=== PATIENT | female | born 1980 | race Caucasian/White ===

== ENCOUNTER 2018-06-25 16:03 | Outpatient (REF) | payer BC, SELFPAY ==
--- NOTE | 2018-06-25 15:40 | PAPFT_PTH ---
PATIENT: Meg Wilson LOC: [facility] U#:[id number] AGE/SX: 38/F ROOM: RE06/25/[address]: JOSE Aldridge : 1980 BED: DIS: 06/25/2018 SPEC #: [id number] RECD: 06/25/18 17:16 STATUS: SONIA RETran #: [id number] YEHUDA: 06/25/18 15:[address]: Brandy Dwyer DEPT: [facility] Cytology RECD BY: Daphne Dave ENTERED: 06/25/18 17:16 SP TYPE: PAPFT OTHR DR: Batsheva Quinonez Tissues: 1 - CX/ENDOCX FOR PAP SMEARS Procedures: PAP THIN PREP/[facility] Screening HPV DNA PROBE Comments: [id number]
== END 2018-06-25 16:23 ==
LOC: LBN 16:03
PROVIDERS: Visit Provider Nurse Practitioner Family
DX: Z12.4 Encounter for screening for malignant neoplasm of cervix (principal); Z11.51 Encounter for screening for human papillomavirus (HPV)
CPT/HCPCS: 88142; 87624

== ENCOUNTER 2019-06-11 17:55 | Emergency (ER) | payer BC, SELFPAY ==
[2019-06-11 17:59] VITALS: BP 152/92; PULSE 100; RESP 18; TEMP 36.6; O2SAT 99
--- NOTE | 2019-06-11 18:31 | ED.GENADUL_ITS ---
Discharge Plan Disposition Patient Disposition: HOME Condition: Stable Discharge Details Chief Complaint: Orthopedic Clinical Impression: Muscle strain of lower leg Primary Care Provider: Viktoria Santos ED Provider: Nadia Núñez Home Meds and New Rx's Prescriptions: New lidocaine [Lidoderm] 5 % adhesive patch,medicated 1 patch TP DAILY Qty: 15 RF: 0 Continued norgestimate-ethinyl estradiol [Sprintec (28)] 0.25-35 mg-mcg tablet 1 tab PO DAILY Qty: 84 RF: 3 multivitamin [Daily Multi-Vitamin] 1 EACH tablet 1 ea PO DAILY RF: 0 Discharge Instructions Instructions: Muscle Strain (ED) Additional Instructions: Alternate Tylenol and Motrin as needed and directed for pain. Apply the topical pain patch to the area as needed and directed. Alternate ice and heat to the affected area several times daily for 20 minutes at a time. Follow-up with the primary doctor this week for reevaluation. Return immediately to the emergency department with any worsening or new concerning symptoms. Discharge Data Discharge Date/Time-TO BE ENTERED AT DEPARTURE: 06/11/19 19:07 Discharge Physician: Nadia Núñez Medical Decision Making 39-year-old female presents with complaint of feeling a snap with sudden onset of left posterior calf pain today while walking uphill today. Denies fever or rash. She has tenderness to palpation of her left posterior leg near insertion of the calf and mid leg but there is no evidence of trauma, rash or cellulitis. She is neurovascular intact. Negative Collazo test. Normal knee/hip/ankle and foot exam. Appears consistent likely with muscle strain. Exam/presentation not consistent with DVT or cellulitis. She declines dose of ibuprofen here. A Lidoderm patch was placed. Patient was given a Lidoderm patch prescription. She is advised to alternate ice and heat, Tylenol and Motrin and gentle stretching exercises. An Jamey wrap was placed. She was advised to follow-up with her primary care doctor for reevaluation and to return here anytime if worse. Medical Records Medical records reviewed: Yes I reviewed the patient's medical records. HPI General Mode of arrival: ambulatory . Date/Time Provider Initiated Documentation: 06/11/19 18:02 . Limitations to Documentation: no limitations . Information obtained by: patient . HPI Narrative: Patient is a 39-year-old female presents with left posterior leg pain after she felt and heard a snap in her left calf muscle as she was walking up a hill today. Patient states she had a similar episode occurred within the past week but states today's episode appeared more intense. She states she has difficulty ambulating on her left foot due to the pain. She has not taken anything for pain. She denies any fever, recent travel, recent surgery, hip, knee, ankle or foot pain. Related Data Home Medications Medication Instructions Recorded Confirmed multivitamin [Daily Multi-Vitamin] 1 ea PO DAILY 11/04/13 06/11/19 norgestimate 0.25 mg-ethinyl 1 tab PO DAILY #84 tab 06/25/18 06/11/19 estradiol 35 mcg tablet lidocaine [Lidoderm] 1 patch TP DAILY #15 each 06/11/19 Previous Rx's Medication Instructions Recorded norgestimate 0.25 mg-ethinyl 1 tab PO DAILY #84 tab 06/25/18 estradiol 35 mcg tablet lidocaine [Lidoderm] 1 patch TP DAILY #15 each 06/11/19 Allergies Allergy/AdvReac Type Severity Reaction Status Date / Time No Known Drug Allergies Allergy Unverified 06/11/19 18:06 General Stated Complaint: Orthopedic PRABHA: 4 Review of Systems Review of Systems ROS Unobtainable: All systems reviewed & are unremarkable except as noted in HPI and below Constitutional Constitutional: Reports as per HPI, Denies chills and Denies fever(s) Eyes Eyes: Denies blurry vision ENT Ears, Nose, Mouth, and Throat: Denies dizziness, Denies sore throat and Denies throat swelling Cardiovascular Cardiovascular: Denies chest pain and Denies dyspnea Respiratory Respiratory: Denies cough and Denies dyspnea Gastrointestinal Gastrointestinal: Denies abdominal pain, Denies diarrhea and Denies vomiting Genitourinary Genitourinary: Denies hematuria and Denies dysuria Musculoskeletal Musculoskeletal: Denies back pain, Denies numbness and Reports other (Left calf pain.) Integumentary/Breasts Skin/Breast: Denies lesions and Denies rash Neurologic Neurologic: Denies dizziness, Denies focal weakness and Denies numbness Allergic/Immunologic Allergic/Immunologic: Denies throat swelling [facility] Medical History No significant past medical history (Acute) Surgical History (Updated 07/14/18 @ 14:34 by [facility]) 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) laparoscopic [facility] Date not exact as last ov note didn't specify Tonsillectomy and adenoidectomy as a child Social History Smoking/Tobacco Use Status: Never Alcohol Intake: former Substance use type: does not use Do you feel safe at home: Yes Do you feel safe in your relationship?: Yes Female Reproductive History Menstrual control method: pills History History 2 Para Hx # Term Pregnancies 2 Multiple births Hx # Pregnancies Ectopic pregnancies AB induced Hx Number of Living Children AB spontaneous Exam Const General: cooperative, healthy appearing and no acute distress HENMT Head: normal to inspection Face and sinus: normal facial exam Eyes General: appearance normal, both eyes and all related structures EOM: EOM intact bilaterally Neck Neck: normal visual inspection and No submandibular swelling Lymphatic: no lymphadenopathy noted Chest Chest: normal inspection of the chest and no tenderness Resp Effort & Inspection: normal respiratory effort and able to speak in complete sentences Cardio Rate: regular rate Skin General skin exam: no rashes or lesions noted Neuro General: alert, awake and oriented x3 Cognition: normal cognition Speech: speech normal Motor: muscle tone normal throughout Sensory Exam: no sensory deficits noted Extrem Other: Tenderness to palpation L posterior inferior calf. There is no edema, ecchymosis, erythema, lesions or rash. Bilateral posterior legs appear symmetric. Negative Collazo test L leg. Normal left knee/hip/ankle/foot exam without pain with range of motion or tenderness. Left DP/PT pulses intact. Psych Appearance: grossly normal Mental Status: mental status grossly normal Speech and Movement: speech and movement normal Affect: normal affect Course Vital Signs Vital signs: Vital Signs Temperature 97.9 F 06/11/19 17:59 Pulse 100 H 06/11/19 17:59 Respiratory Rate 18 06/11/19 17:59 Blood Pressure 152/92 H 06/11/19 17:59 Pulse Oximetry 99 06/11/19 17:59 Temperature 97.9 F 06/11/19 17:59 Temperature Source Skin 06/11/19 17:59 Pulse 100 H 06/11/19 17:59 Respiratory Rate 18 06/11/19 17:59 Respiratory Effort Non-Labored 06/11/19 18:02 Blood Pressure 152/92 H 06/11/19 17:59 Blood Pressure Position Sitting 06/11/19 17:59 Pulse Oximetry 99 06/11/19 17:59 Oxygen Delivery Method Room Air 06/11/19 17:59 Oxygen Flow Rate 0 06/11/19 17:59 Pain Level 8 06/11/19 17:59
[2019-06-11] MEDS: Lidocaine 5% Patch 1 PATCH (19:00)
== END 2019-06-11 19:07 | disposition home or self-care (01) ==
PROVIDERS: Emergency Provider Physician Assistant; PCP Family Medicine
DX: S86.912A Strain of unspecified muscle(s) and tendon(s) at lower leg level, left leg, initial encounter (principal); X58.XXXA Exposure to other specified factors, initial encounter
CPT/HCPCS: 99283; E0114

== ENCOUNTER 2019-11-15 17:13 | Emergency (ER) | payer BC, SELFPAY ==
[2019-11-15 17:16] VITALS: BP 121/100; PULSE 90; RESP 16; TEMP 36.8; O2SAT 98
--- NOTE | 2019-11-15 18:09 | ED.GENADUL_ITS ---
Discharge Plan Disposition Patient Disposition: HOME Condition: Stable Discharge Details Chief Complaint: RespSymp Clinical Impression: URI (upper respiratory infection) Primary Care Provider: Viktoria Santos ED Provider: Kashmir Hicks Home Meds and New Rx's Prescriptions: Continued norgestimate-ethinyl estradiol [Sprintec (28)] 0.25-35 mg-mcg tablet 1 tab PO DAILY Qty: 84 RF: 3 multivitamin [Daily Multi-Vitamin] 1 EACH tablet 1 ea PO DAILY RF: 0 Discharge Instructions Instructions: Upper Respiratory Infection (ED) Additional Instructions: Please drink plenty of fluid to stay hydrated and allow for plenty of rest. Please contact your primary care physician to arrange follow-up. Return to the ER for any worsening or new concerning symptoms. Referrals: Viktoria Santos [Primary Care Provider] - Discharge Data Discharge Date/Time-TO BE ENTERED AT DEPARTURE: 11/15/19 19:00 Medical Decision Making 39-year-old female here with respiratory illness over the past 2 weeks. No signs of focal bacterial infection on exam. Suspect viral illness. Consider influenza. Rapid flu testing negative. Supportive care was recommended. Patient was encouraged to follow-up with her primary care physician and to return should she have any worsening or new conc erning symptoms. HPI General Mode of arrival: ambulatory . Date/Time Provider Initiated Documentation: 11/15/19 17:18 . Limitations to Documentation: no limitations . Information obtained by: patient . HPI Narrative: 39-year-old female presents with chief complaint of respiratory illness. Patient notes she initially had sore throat, cough and low-grade fever about 2 weeks ago. Symptoms seem to improve and then over the past few days have returned. She had severe sinus congestion that is now improved. She continues to have ear popping. She is here tonight with her daughter who has respiratory illness and wanted to be evaluated given she has been ill for approximately 2 weeks. She continues to have cough that is intermittently productive. Symptoms are now mild to moderate. No modifiers. She has been using ibuprofen and guaifenesin which did seem to help with some of her cough at night. She works as a teacher. No recent travel. Related Data Home Medications Medication Instructions Recorded Confirmed multivitamin [Daily Multi-Vitamin] 1 ea PO DAILY 11/04/13 11/15/19 norgestimate 0.25 mg-ethinyl 1 tab PO DAILY #84 tab 10/28/19 02/18/20 estradiol 35 mcg tablet Previous Rx's Medication Instructions Recorded norgestimate 0.25 mg-ethinyl 1 tab PO DAILY #84 tab 07/25/19 estradiol 35 mcg tablet Allergies Allergy/AdvReac Type Severity Reaction Status Date / Time No Known Drug Allergies Allergy Unverified 11/15/19 17:18 General Stated Complaint: RespSymp PRABHA: 3 Review of Systems All systems reviewed & are unremarkable except as noted in HPI and below Constitutional Constitutional: Reports as per HPI Respiratory Respiratory: Reports cough Gastrointestinal Gastrointestinal: Denies vomiting [facility] Medical History No significant past medical history (Acute) Surgical History 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) laparoscopic at [facility] Date not exact as last ov note didn't specify Tonsillectomy and adenoidectomy as a child Family History Father Well adult Mother Well adult Social History Smoking/Tobacco Use Status: Never Alcohol Intake: former Substance use type: does not use current occupation: Teacher in [place] Do you feel safe at home: Yes Do you feel safe in your relationship?: Yes Female Reproductive History Menstrual control method: pills History History 2 Para Hx # Term Pregnancies 2 Multiple births Hx # Pregnancies Ectopic pregnancies AB induced Hx Number of Living Children AB spontaneous Exam Const General: cooperative and no acute distress HENMT Ears: TM normal on the left, EAC's normal, mastoids normal, no periauricular adenopathy and TM abnormal (Fall on right) not with effusion and not erythematous General nose exam: external nose normal Mouth: moist mucous membranes Throat: tonsils normal, uvula midline, no peritonsillar masses and postnasal drainage Eyes Conjunctivae: normal conjunctivae Sclera: normal sclerae Neck Neck: no lymphadenopathy, trachea midline and supple Resp Effort & Inspection: normal respiratory effort, cough, not labored and no stridor Auscultation: clear to auscultation bilaterally, no rales, no rhonchi and no wheezes Cardio Jugular venous pressure: no JVD Rate: regular rate and not tachycardic Rhythm: regular rhythm GI Palpation: soft, not firm, no guarding, no masses, not rigid and nontender Skin General skin exam: no rashes or lesions noted Neuro General: alert, awake and tone normal Extrem General: no edema Psych Appearance: grossly normal Mental Status: mental status grossly normal Course Vital Signs Vital signs: Vital Signs Temperature 36.8 C 11/15/19 17:16 Pulse 90 11/15/19 17:16 Respiratory Rate 16 11/15/19 17:16 Blood Pressure 121/100 H 11/15/19 17:16 Pulse Oximetry 98 11/15/19 17:16 Temperature 36.8 C 11/15/19 17:16 Temperature Source Temporal Artery Scan 11/15/19 17:16 Pulse 90 11/15/19 17:16 Respiratory Rate 16 11/15/19 17:16 Respiratory Effort Non-Labored 11/15/19 17:21 Respiratory Depth Normal 11/15/19 17:21 Blood Pressure 121/100 H 11/15/19 17:16 Pulse Oximetry 98 11/15/19 17:16 Oxygen Delivery Method Room Air 11/15/19 17:16 Oxygen Flow Rate 0 11/15/19 17:16 Pain Level 5 11/15/19 17:16 Lab/Test Results Lab/Test Results: 11/15/19 17:30 Nasopharynx Influenza Types A,B Antigen - Final
== END 2019-11-15 19:00 | disposition home or self-care (01) ==
PROVIDERS: Emergency Provider Student in an Organized Health Care Education/Training Program; PCP Family Medicine
DX: J06.9 Acute upper respiratory infection, unspecified (principal)
CPT/HCPCS: 87449; 99281

== ENCOUNTER 2019-11-18 16:48 | Emergency (ER) | payer BC, SELFPAY ==
[2019-11-18 16:52] VITALS: BP 158/93; PULSE 91; RESP 18; TEMP 36.5; O2SAT 100
--- NOTE | 2019-11-18 17:15 | W.ED.GENAD ---
Discharge Plan Disposition Patient Disposition: HOME Condition: Stable Discharge Details Chief Complaint: GenMedical Clinical Impression: Sinusitis Primary Care Provider: Viktoria Santos ED Provider: Ольга Cruz Home Meds and New Rx's Prescriptions: New amoxicillin-pot clavulanate [Augmentin] 875-125 mg tablet 1 tab PO BID 7 Days Qty: 14 RF: 0 Continued norgestimate-ethinyl estradiol [Sprintec (28)] 0.25-35 mg-mcg tablet 1 tab PO DAILY Qty: 84 RF: 3 multivitamin [Daily Multi-Vitamin] 1 EACH tablet 1 ea PO DAILY RF: 0 Discharge Instructions Instructions: Sinusitis (ED) Additional Instructions: Try Flonase nasal spray 1 spray a day x3 to 5 days. Follow up with primary care provider in 3-5 days. Return to ED sooner if any worsening or concerns. Increase oral fluids. Please take Tylenol or Ibuprofen with food every 4-6 hours as needed for pain and swelling. Take medications as directed. Referrals: Viktoria Santos [Primary Care Provider] - Discharge Data Discharge Date/Time-TO BE ENTERED AT DEPARTURE: 11/18/19 17:25 Medical Decision Making 39-year-old female presents with left-sided sinus tenderness x2-1/2 weeks. She reports being seen here on Thursday for similar symptoms, upper respiratory symptoms including cough ear pressure sinus pressure and headache. She reports that symptoms are now gotten somewhat worse. And now have kind of settled into her left maxillary sinus and left jaw. Denies any chest pain or shortness of breath. No lymphadenopathy. Due to length of illness will place patient on Augmentin twice daily x7 days and instructed to use Flonase [id number] or similar. Verbalized understanding. HPI General Mode of arrival: ambulatory. Date/Time Provider Initiated Documentation: 11/18/19 16:48. Limitations to Documentation: no limitations. Information obtained by: patient. HPI Narrative: 39-year-old female presents with left-sided sinus tenderness. She reports being seen here on Thursday for similar symptoms, upper respiratory symptoms including cough ear pressure sinus pressure and headache. She reports that symptoms are now gotten somewhat worse. And now have kind of settled into her left maxillary sinus and left jaw. Denies any chest pain or shortness of breath. No lymphadenopathy. Related Data Home Medications Medication Instructions Recorded Confirmed multivitamin [Daily Multi-Vitamin] 1 ea PO DAILY 11/04/13 11/18/19 norgestimate 0.25 mg-ethinyl 1 tab PO DAILY #84 tab 07/25/19 11/18/19 estradiol 35 mcg tablet amoxicillin-pot clavulanate 1 tab PO BID 7 Days #14 tab 11/18/19 [Augmentin] Previous Rx's Medication Instructions Recorded norgestimate 0.25 mg-ethinyl 1 tab PO DAILY #84 tab 07/25/19 estradiol 35 mcg tablet amoxicillin-pot clavulanate 1 tab PO BID 7 Days #14 tab 11/18/19 [Augmentin] Allergies Allergy/AdvReac Type Severity Reaction Status Date / Time No Known Drug Allergies Allergy Unverified 11/18/19 16:56 General Stated Complaint: GenMedical PRABHA: 3 Review of Systems Narrative: Constitutional: Negative for weight loss, alert and oriented, well groomed, normal body habitus, appears comfortable. HEENT: Denies trauma, headaches, blurry vision, sore throat, trouble swallowing. Positive nasal discharge. Positive sinus tenderness Chest: Denies chest pain, palpitations, irregular rhythm, hypertension. Respiratory: Denies Shortness of breath, hemoptysis. Positive cough GI: Denies abdominal pain, nausea, vomiting, diarrhea, constipation. : Denies dysuria, hematuria, flank pain, rectal bleeding. Neuro: Denies dizziness, blurry vision, weakness, syncope, headache or facial numbness. Hematologic: Denies easy bruising, intolerance to heat or cold, hair loss. 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 Appears stated age. Normal body habitus. Head: Normocephalic, no trauma. Eyes: Pupils PERRLA, Red reflex noted, EOM's intact. Eyelids symmetrical withour lesions, discharge, or swelling. ENT: Bilateral TM's WNL, External ear normal to inspection, no mastoid TTP, swelling, or erythema, Nasal turbinates WNL, no nasal discharge. Normal dentition, Posterior pharynx WNL, no exudate. positive left-sided maxillary sinus tenderness with palpation. No dental caries or dental abscess noted. Is handling secretions well Chest: RRR, Normal S1, S2, distal pulses intact. Resp: Lungs clear to auscultation bilaterally, no wheezes, rales, or rhonchi. Musculoskeletal: Normal gait, 5/5 strength to all four extremities. Skin: No suspicious rashes or lesions. Capillary refill ?2 sec. Neurologic: Cranial nerves II-XII intact. Alert and oriented x 3. DTR's intact. Hematologic/Lymphatic: No ecchymosis, no lymphadenopathy. Course Vital Signs Vital signs: Vital Signs Temperature 36.5 C 11/18/19 16:52 Pulse 91 H 11/18/19 16:52 Respiratory Rate 18 11/18/19 16:52 Blood Pressure 158/93 H 11/18/19 16:52 Pulse Oximetry 100 11/18/19 16:52 Temperature 36.5 C 11/18/19 16:52 Temperature Source Temporal Artery Scan 11/18/19 16:52 Pulse 91 H 11/18/19 16:52 Respiratory Rate 18 11/18/19 16:52 Respiratory Effort 11/18/19 17:05 Respiratory Depth Normal 11/18/19 17:05 Respiratory Pattern Normal 11/18/19 17:05 Blood Pressure 158/93 H 11/18/19 16:52 Blood Pressure Position Sitting 11/18/19 16:52 Pulse Oximetry 100 11/18/19 16:52 Oxygen Delivery Method Room Air 11/18/19 16:52 Oxygen Flow Rate 0 11/18/19 16:52 Pain Level 8 11/18/19 16:52
[2019-11-18] MEDS: Amoxicillin 875/Clav. 125 TAB PO (17:24)
== END 2019-11-18 17:25 | disposition home or self-care (01) ==
PROVIDERS: Emergency Provider Registered Nurse Emergency; PCP Family Medicine
DX: J01.90 Acute sinusitis, unspecified (principal)
CPT/HCPCS: 99283

== ENCOUNTER 2020-11-26 11:28 | Outpatient (REF) | payer BC, SELFPAY ==
--- NOTE | 2020-11-26 10:40 | PAPFT_PTH ---
PATIENT: Meg Wilson LOC: [facility] U#:[id number] AGE/SX: 40/F ROOM: RE11/26/[address]: JOSE Aldridge : 1980 BED: DIS: 11/26/2020 SPEC #: [id number] RECD: 11/26/20 13:02 STATUS: SONIA BECKETT #: [id number] YEHUDA: 11/26/20 10:[address]: Brandy Dwyer DEPT: [facility] Cytology RECD BY: Daphne Dave ENTERED: 11/26/20 13:03 SP TYPE: PAPFT OTHR DR: Viktoria Santos Tissues: 1 - CX/ENDOCX FOR PAP SMEARS Procedures: PAP THIN PREP/[facility] Screening HPV DNA PROBE Comments: [id number]
== END 2020-11-26 11:29 | disposition home or self-care (01) ==
LOC: LBN 11:28
PROVIDERS: PCP Family Medicine; Visit Provider Nurse Practitioner Family
DX: Z12.4 Encounter for screening for malignant neoplasm of cervix (principal); Z11.51 Encounter for screening for human papillomavirus (HPV)
CPT/HCPCS: 88142; 87624

== ENCOUNTER 2021-01-18 03:47 | Outpatient (CLI) | payer BC, SELFPAY ==
--- NOTE | 2021-01-18 10:45 | DI.MAMMO_ITS ---
EXAM: MAMMO SCREENING CLINICAL HISTORY: screening TECHNIQUE: Mammograms were interpreted according to the usual protocol including computer analysis w [employer] CAD system, tomosynthesis and C-view imaging. COMPARISON: No exams were available for comparison. Baseline examination. FINDINGS: The breasts are composed of scattered fibroglandular densities, Breast Density category B. No suspicious masses or suspicious microcalcifications are seen. No skin thickening or abnormal axillary lymph nodes are seen. IMPRESSION: BI-RADS Category 1, Negative mammogram Yearly screening mammography is recommended. Breast Density - Category B, scattered fibroglandular densities. A negative radiographic report should not delay biopsy if a dominant or clinically suspicious mass is present. Up to ten percent of cancers are not identified on mammography. A negative report may reinforce clinical impression. Adenosis and dense breasts may obscure an underlying neoplasm. False positive reports average 6 to 10%. Patient will receive a letter notifying them of these results.
== END 2021-01-18 04:07 ==
PROVIDERS: PCP Family Medicine; Visit Provider Nurse Practitioner Family
DX: Z12.31 Encounter for screening mammogram for malignant neoplasm of breast (principal)
CPT/HCPCS: 77063; 77067

== ENCOUNTER → 2022-04-07 02:19 | Outpatient (CLI) | payer BC, SELFPAY ==
--- NOTE | 2022-04-07 16:30 | DI.MAMMO_ITS ---
Exam(s) MAMMO SCREENING EXAM: MAMMO SCREENING CLINICAL HISTORY: screening. TECHNIQUE: Bilateral full field digital CC and MLO mammographic images were obtained with 3D tomosyn thesis and utilizing computer aided detection (CAD). COMPARISON: Prior baseline mammogram of December 2020 FINDINGS: In the breast there is an asymmetric density-possible nodule located 9 cm in from the nipple on the 3 D cc view and measuring approximately 1 by 0.6 cm.. Requires additional imaging. There are no malig nant-appearing microcalcification groups in this region or elsewhere in right breast. Small benign-a ppearing nodule also noted medially in the right breast measuring 5 x 5 millimeters located medial to the nipple, 10 cm in from the nipple. In the opposite-left breast there is an asymmetric density possible nodule located laterally, approxi mately 11 cm in the nipple measuring approximately 9 x 7. There is no significant architectural distortion nor skin thickening-retraction. IMPRESSION: Bilateral asymmetric densities/possible nodules. Spot compression views of both breasts and bilatera l complete breast ultrasound recommended. BI-RADS Category 0 - Assessment Incomplete: Need additional imaging evaluation Breast Density - Category B - Scattered areas of fibroglandular density Breast density Category C or D implies that the patient has dense breast tissue. Dense breast tissue can make it harder to find cancer on a mammogram. Dense breast tissue is also associated with an incr eased risk of breast cancer. This information about the result of the mammogram report was provided to the patient to raise their awareness. Use this report when you speak with the patient about their risks for breast cancer, which includes their family history. At that time, you may recommend additional screening tests (Ultrasoun d or MRI) as these tests may add significant information. A negative radiographic report should not delay biopsy if a dominant or clinically suspicious mass is present. Up to ten percent of cancers are not identified on mammography. A negative report may reinforce clinical impression. Adenosis and dense breasts may obscure an underlying neoplasm. False positive reports average 6 to 10%. Patient will receive a letter notifying them of these results.
== END ==
PROVIDERS: PCP Family Medicine; Visit Provider Nurse Practitioner Family
DX: Z12.31 Encounter for screening mammogram for malignant neoplasm of breast (principal); R92.8 Other abnormal and inconclusive findings on diagnostic imaging of breast
CPT/HCPCS: 77063; 77067

== ENCOUNTER → 2022-04-11 00:58 | Outpatient (CLI) | payer BC, SELFPAY ==
--- NOTE | 2022-04-11 | DI.US_ITS ---
Exam(s) US BREAST RT LIMITED US BREAST LT LIMITED MG MAMMO SCREEN CALL BACK BI EXAM: MG MAMMO SCREEN CALL BACK BI and and bilateral limited breast U/S CLINICAL HISTORY: ASYMMETRIC DENSITY BILAT BREAST. TECHNIQUE: Craniocaudal and mediolateral oblique Full Field Digital Mammography views of the bilater al breast with Computer Aided Diagnosis followed by Tomosynthesis and bilat breast ultrasound. COMPARISON: Comparison made with prior examinations. FINDINGS: Mammography/Tomosynthesis: Masses/Architectural Distortion: The areas in the outer left breast were evaluated with spot compress ion views. Additional views fail to show persistent discrete mass. Microcalcifictions: No suspicious pleomorphic-type are seen. Skin Thickening/Nipple Retraction: None. Limited bilateral breast US: Echotexture: Normal appearance of the glandular tissue. Shadowing: No suspicious foci. Cyst: There is a 3 x 4 x 4 mm cyst at the 12 o'clock position of the left breast 3 cm from the nipple . There are 2 small cysts at the 11 o'clock position of the right breast 4 cm from the nipple. They measure 2 x 2 x 3 mm and 3 x 1 x 4 mm. Solid lesions: None seen. Ductal dilation: None. IMPRESSION: 1. No evidence of malignancy is noted. 2. A six-month follow-up bilateral mammogram is recommended for re-evaluation. 3. The findings were discussed with the patient on the date of the examination. BI-RADS Category 3 - 6 month - Probably Benign Finding: Recommend follow-up imaging in 6 months Breast Density - Category B - Scattered areas of fibroglandular density Breast density Category C or D implies that the patient has dense breast tissue. Dense breast tissue can make it harder to find cancer on a mammogram. Dense breast tissue is also associated with an incr eased risk of breast cancer. This information about the result of the mammogram report was provided to the patient to raise their awareness. Use this report when you speak with the patient about their risks for breast cancer, which includes their family history. At that time, you may recommend additional screening tests (Ultrasoun d or MRI) as these tests may add significant information. A negative radiographic report should not delay biopsy if a dominant or clinically suspicious mass is present. Up to ten percent of cancers are not identified on mammography. A negative report may reinforce clinical impression. Adenosis and dense breasts may obscure an underlying neoplasm. False positive reports average 6 to 10%. Patient will receive a letter notifying them of these results.
== END ==
PROVIDERS: PCP Family Medicine; Visit Provider Nurse Practitioner Family
DX: Z12.31 Encounter for screening mammogram for malignant neoplasm of breast (principal); R92.8 Other abnormal and inconclusive findings on diagnostic imaging of breast; N60.02 Solitary cyst of left breast; N60.11 Diffuse cystic mastopathy of right breast
CPT/HCPCS: 76642; 77063; 77067

== ENCOUNTER 2022-06-20 17:04 | Outpatient (REF) | payer BC, SELFPAY ==
[2022-06-20 18:40] LABS: HCT 38.5 % (36.0-46.0); HGB 13.1 g/dL (11.2-15.7); MCH 30.6 pg (27.0-33.0); MCV 90 fL (80-95); MPV 10.2 fL (8.0-11.0); Platelet Count 356 10^3/uL (130-400); RBC 4.28 10^6/uL (3.93-5.22); RDW 11.4 % (11.7-14.6); RDW-SD 37.5 fL; WBC 12.46 10^3/uL (4.4-10.8)
[2022-06-20 19:04] LABS: ALT 16 U/L (14-59); AST 9 U/L (15-37); Albumin 3.7 g/dL (3.4-5.0); Alkaline Phosphatase 73 U/L (46-116); Anion Gap 8.1 mmol/L (3-11); BUN 13 mg/dL (7-18); Bilirubin, Total 0.2 mg/dL (0.2-1.0); CO2 27.9 mmol/L (21.0-32.0); CREATININE 0.7 mg/dL (0.55-1.02); Calcium 8.8 mg/dL (8.5-10.1); Calculated LDL 78 mg/dL (<100); Chloride 103 mmol/L (98-107); Cholesterol 157 mg/dL (<200); Estimated GFR 110.67 (mL/min/1.73m2); Glucose 70 mg/dL (74-106); HDL Cholesterol 64 mg/dL (40-60); Potassium 4.1 mmol/L (3.5-5.1); Sodium 139 mmol/L (136-145); Total Protein 7.5 g/dL (6.4-8.2); Triglyceride 76 mg/dL (<150)
== END 2022-06-20 17:05 | disposition home or self-care (01) ==
LOC: NCHCN 17:04
PROVIDERS: PCP Family Medicine; Visit Provider Nurse Practitioner Family
DX: Z00.00 Encounter for general adult medical examination without abnormal findings (principal); Z13.220 Encounter for screening for lipoid disorders; Z13.228 Encounter for screening for other metabolic disorders
CPT/HCPCS: 80053; 80061; 85027

== ENCOUNTER 2022-10-14 02:25 | Outpatient (CLI) | payer BC, SELFPAY ==
--- NOTE | 2022-10-14 07:46 | DI.US_ITS ---
Exam(s) US BREAST LT COMPLETE US BREAST RT COMPLETE MG MAMMO DIAGNOSTIC BI EXAM: MG MAMMO DIAGNOSTIC BI AND BILATERAL COMPLETE BREAST ULTRASOUND CLINICAL HISTORY: 6 mo f/u,R92.8. TECHNIQUE: Unilateral spot mammographic images were obtained with 3D tomosynthesis technique and uti lizing computer aided detection (CAD). COMPARISON: Prior mammograms were reviewed, the most recent being MARCH 2022. FINDINGS: DIAGNOSTIC BILATERAL MAMMOGRAM: There has been no significant change in the appearance and distribution of the fibroglandular tissue. No new spiculated masses. Asymmetric densities bilaterally appear unchanged. There are no new malig nant-appearing microcalcification groups in either breast. There is no new architectural distortion nor skin thickening-retraction. BILATERAL COMPLETE BREAST ULTRASOUND: Right breast ultrasound: There is a 3 x 2 millimeter benign microcyst at the 10 o'clock position note d. No other focal ultrasound findings in all 4 quadrants. No solid lesions. Scanning of the right axilla is negative for adenopathy. Left breast ultrasound: No evidence of solid or significant cystic lesions in all 4 quadrants. Scanning of the left axilla is negative for adenopathy. IMPRESSION: 1. Stable benign-appearing mammographic findings. 2. Benign-appearing ultrasound finding in the right breast and no significant focal ultrasound findin gs in left breast. \ Appropriate follow-up is to keep this patient on a yearly mammogram schedule with earlier imaging if a self detected breast changes noted.. The patient was informed of the findings and follow-up recommendations by myself prior to leaving the department today. BI-RADS Category 2 - Benign Findings Breast Density - Category B - Scattered areas of fibroglandular density Breast density Category C or D implies that the patient has dense breast tissue. Dense breast tissue can make it harder to find cancer on a mammogram. Dense breast tissue is also associated with an incr eased risk of breast cancer. This information about the result of the mammogram report was provided to the patient to raise their awareness. Use this report when you speak with the patient about their risks for breast cancer, which includes their family history. At that time, you may recommend additional screening tests (Ultrasoun d or MRI) as these tests may add significant information. A negative radiographic report should not delay biopsy if a dominant or clinically suspicious mass is present. Up to ten percent of cancers are not identified on mammography. A negative report may reinforce clinical impression. Adenosis and dense breasts may obscure an underlying neoplasm. False positive reports average 6 to 10%. Patient will receive a letter notifying them of these results.
== END 2022-10-14 02:45 ==
LOC: DI 02:26
PROVIDERS: PCP Family Medicine; Visit Provider Nurse Practitioner Family
DX: R92.8 Other abnormal and inconclusive findings on diagnostic imaging of breast (principal)
CPT/HCPCS: 76642; 77062; 77066; G0279

== ENCOUNTER → 2023-10-19 03:25 | Outpatient (CLI) | payer BC, SELFPAY ==
--- NOTE | 2023-10-19 15:00 | DI.MAMMO_ITS ---
Exam(s) MAMMO SCREENING EXAM: MAMMO SCREENING CLINICAL HISTORY: screening TECHNIQUE: Mammograms were interpreted according to the usual protocol including computer analysis w [employer] CAD system, tomosynthesis and C-view imaging. COMPARISON: 2020 through 2022 FINDINGS: The breasts are composed of scattered fibroglandular densities, Breast Density category B. No suspicious masses or suspicious microcalcifications are seen. No skin thickening or abnormal axillary lymph nodes are seen. There has been no significant change from prior exams. IMPRESSION: BI-RADS Category 1, Negative mammogram Yearly screening mammography is recommended. Breast Density - Category B, scattered fibroglandular densities. A negative radiographic report should not delay biopsy if a dominant or clinically suspicious mass is present. Up to ten percent of cancers are not identified on mammography. A negative report may reinforce clinical impression. Adenosis and dense breasts may obscure an underlying neoplasm. False positive reports average 6 to 10%. Patient will receive a letter notifying them of these results.
== END ==
PROVIDERS: PCP Family Medicine; Visit Provider Nurse Practitioner Women's Health
DX: Z12.31 Encounter for screening mammogram for malignant neoplasm of breast (principal)
CPT/HCPCS: 77063; 77067

== ENCOUNTER 2023-10-22 15:35 | Outpatient (REF) | payer BC, SELFPAY ==
[2023-10-22 21:58] LABS: HCT 39.3 % (36.0-46.0); HGB 13.3 g/dL (11.2-15.7); MCH 30.4 pg (27.0-33.0); MCHC 33.8 % (32.0-36.0); MCV 90 fL (80-95); MPV 10.1 fL (8.0-11.0); Platelet Count 388 10^3/uL (130-400); RBC 4.38 10^6/uL (3.93-5.22); RDW 11.5 % (11.7-14.6); RDW-SD 37.9 fL; WBC 11.99 10^3/uL (4.4-10.8)
[2023-10-22 22:27] LABS: ALT 16 U/L (14-59); AST 14 U/L (15-37); Albumin 3.8 g/dL (3.4-5.0); Alkaline Phosphatase 86 U/L (46-116); Anion Gap 8.2 mmol/L (3-11); BUN 11 mg/dL (7-18); Bilirubin, Total 0.3 mg/dL (0.2-1.0); CO2 28.8 mmol/L (21.0-32.0); CREATININE 0.8 mg/dL (0.55-1.02); Calcium 9.2 mg/dL (8.5-10.1); Calculated LDL 71 mg/dL (<100); Chloride 102 mmol/L (98-107); Cholesterol 154 mg/dL (<200); Glucose 86 mg/dL (74-106); HDL Cholesterol 69 mg/dL (40-60); Potassium 4.3 mmol/L (3.5-5.1); Sodium 139 mmol/L (136-145); Total Protein 7.9 g/dL (6.4-8.2); Triglyceride 71 mg/dL (<150)
== END 2023-10-22 15:36 | disposition home or self-care (01) ==
LOC: NCHCN 15:35
PROVIDERS: PCP Family Medicine; Visit Provider Nurse Practitioner Family
DX: Z00.00 Encounter for general adult medical examination without abnormal findings (principal)
CPT/HCPCS: 80053; 80061; 85027

== ENCOUNTER 2024-03-22 03:18 | Outpatient (CLI) | payer BC, SELFPAY ==
[2024-03-22 19:09] LABS: FSH 5.1 mIU/mL (See Note)
== END 2024-03-22 03:19 | disposition home or self-care (01) ==
PROVIDERS: PCP Family Medicine; Visit Provider Nurse Practitioner Women's Health
DX: N91.2 Amenorrhea, unspecified (principal)
CPT/HCPCS: 36415; 83001; 84146; 84443

== ENCOUNTER 2024-06-26 10:41 | Emergency (ER) | payer BC, SELFPAY ==
[2024-06-26 10:50] VITALS: BP 147/91; PULSE 103; RESP 20; TEMP 36.9; O2SAT 96
[2024-06-26 11:06] VITALS: RESP 18
--- NOTE | 2024-06-26 11:06 | ED.GENADUL_ITS ---
Discharge Plan Disposition Patient Disposition: Home Condition: Stable Discharge Details Clinical Impression: Folliculitis, Bronchitis Primary Care Provider: Viktoria Santos ED Provider: Max Watt Home Meds and New Rx's Prescriptions: New prednisone 20 mg tablet 60 mg PO DAILY 5 Days Qty: 15 0RF doxycycline hyclate 100 mg tablet 100 mg PO BID Qty: 14 0RF Continued multivitamin [Daily Multi-Vitamin] 1 EACH tablet 1 ea PO DAILY norgestimate-ethinyl estradiol [Sprintec (28)] 0.25-35 mg-mcg tablet See Rx Instructions .ROUTE .COMPLEX Qty: 28 0RF Dose Instruction: Take 1 tablet by mouth once daily Rx Instructions: Take 1 tablet by mouth once daily Discharge Instructions Additional Instructions: If you are not improving within the next week follow-up with your primary care provider If you feel more ill or have severe worsening shortness of breath return to the emergency department for reevaluation HPI General Mode of arrival: ambulatory . Date/Time Provider Initiated Documentation: 06/26/24 10:42 . Limitations to Documentation: no limitations . Information obtained by: patient . History of Present Illness 44 year old F presents to the emergency department with the chief complaint of cough, described as moderate, Patient started experiencing this day(s) (14) and it has been intermittent. No relieving factors improve symptom(s), No exacerbating factors reported . Patient notes no other symptoms., cough, fever/chills and shortness of breath; denies chest pain. Patient did receive the following treatments prior to arrival, none Related Data Home Medications ?Medication ?Instructions ?Recorded ?Confirmed multivitamin (Daily Multi-Vitamin 1 ea PO DAILY 11/04/13 03/14/24 tablet) norgestimate 0.25 mg-ethinyl See Rx Instructions .Route 05/31/24 estradiol 35 mcg tablet (Sprintec .COMPLEX #28 tabs (28)) doxycycline hyclate 100 mg tablet 100 mg PO BID #14 tabs 06/26/24 prednisone 20 mg tablet 60 mg (3 x 20 mg) PO DAILY 5 days 06/26/24 #15 tabs Previous Rx's ?Medication ?Instructions ?Recorded norgestimate 0.25 mg-ethinyl See Rx Instructions .Route 05/31/24 estradiol 35 mcg tablet (Sprintec .COMPLEX #28 tabs (28)) doxycycline hyclate 100 mg tablet 100 mg PO BID #14 tabs 06/26/24 prednisone 20 mg tablet 60 mg (3 x 20 mg) PO DAILY 5 days 06/26/24 #15 tabs Allergies Allergy/AdvReac Type Severity Reaction Status Date / Time No Known Drug Allergies Allergy Other (See Unverified 06/26/24 10:55 Comment) General Stated Complaint: Fever PRABHA: 3 Review of Systems All systems reviewed & are unremarkable except as noted in HPI and below Constitutional Constitutional: Reports chills, Reports fever(s) and Denies weakness Cardiovascular Cardiovascular: Denies chest pain and Reports dyspnea Respiratory Respiratory: Reports cough and Reports dyspnea Gastrointestinal Gastrointestinal: Denies abdominal pain and Denies vomiting Musculoskeletal Musculoskeletal: Denies joint swelling Neurologic Neurologic: Denies weakness Endocrine Endocrine: Denies cold intolerance Exam Const General: no acute distress Orientation: alert HENCA Head: normocephalic Ears: external ears normal General nose exam: external nose normal Mouth: moist mucous membranes Eyes General: appearance normal, both eyes and all related structures Neck Neck: normal visual inspection Resp Effort & Inspection: normal respiratory effort and able to speak in complete sentences Auscultation: clear to auscultation bilaterally Cardio Jugular venous pressure: no JVD Rate: regular rate Heart Sounds: no murmurs Neuro General: patient alert and patient oriented x3 Extrem General: normal to inspection Psych Mental Status: mental status grossly normal Course Vital Signs Vital signs: Vital Signs Temperature 36.9 C 06/26/24 10:50 Pulse 103 H 06/26/24 10:50 Respiratory Rate 20 06/26/24 10:50 Blood Pressure 147/91 H 06/26/24 10:50 Pulse Oximetry 96 06/26/24 10:50 Temperature 36.9 C 06/26/24 10:50 Pulse 103 H 06/26/24 10:50 Respiratory Rate 20 06/26/24 10:50 Respiratory Effort Normal 06/26/24 10:56 Blood Pressure 147/91 H 06/26/24 10:50 Pulse Oximetry 96 06/26/24 10:50 Oxygen Delivery Method Room Air 06/26/24 10:50 Oxygen Flow Rate 0 06/26/24 10:50 Pain Level 7 06/26/24 10:50 Medical Decision Making 44-year-old female who denies any significant chronic medical history and no history of smoking comes in with 2 weeks of productive cough and during the initial part of this tested positive for COVID. She said that started that she had fevers and chills but those have since resolved but still has a cough that is nonproductive. She also notes over the past couple days she has had a itchy scalp. She denies any chest pain, leg swelling or calf tenderness. She has no abdominal pain or vomiting. She appears well speaking in full sentences on exam. She has clear lung sounds, no murmurs. Her scalp does have evidence of folliculitis on the posterior scalp where she is itchy. There is no spreading erythema or crepitus or severe tenderness to the scalp. Given her continued cough will obtain a chest x-ray to evaluate for pneumonia and also send a Fluvid. She appears well and has no fever now so do not feel sepsis is likely so do not feel blood work indicated at this time. X-ray on my read shows no acute findings, patient hemodynamically stable. She is still positive for COVID but advised she would likely be positive on PCR testing for weeks after she was initially positive. She is not hypoxic and not high risk for severe disease so do not feel Paxlovid indicated. Given the for cheilitis and 2 weeks of cough will prescribe doxycycline to hopefully treat the folliculitis as well as a possible bronchitis/community-acquired pneumonia. She will follow-up with her PCP and return precautions given Differential Diagnosis Differential Diagnosis: COVID, flu, RSV, pneumonia, folliculitis Quality:SDOH Health Related Social Needs: No Data to Display PFSH All Active Problems (Updated 06/26/24 @ 12:09 by Max Watt MD) Bronchitis (Acute) Folliculitis (Acute) Amenorrhea (Acute) Contraception (Acute) Medical History No significant past medical history Surgical History section X 2 Tonsillectomy and adenoidectomy as a child Family History Father Well adult Mother Well adult Social History Smoking/Tobacco Use Status: Never Second Hand Exposure: No Smoking risk assessment performed?: Yes Alcohol Intake: former Drug use: Never Substance use type: does not use Housing: house current occupation: Teacher in [place] Sexually active: Yes Do you think of yourself as: straight/heterosexual Current gender identity: female What type of physical activity do you participate in: none Seatbelt use: always Helmet use: Yes Drive intox or ride w/intox dedicated truck driver: No Do you feel safe at home: Yes Do you feel safe in your relationship?: Yes Female Reproductive History Menstrual control method: pills History History 2 Para Hx # Term Pregnancies 2 Multiple births Hx # Pregnancies Ectopic pregnancies AB induced Hx Number of Living Children AB spontaneous
--- NOTE | 2024-06-26 11:31 | DI.RAD_ITS ---
Exam(s) XR CHEST 2V PA LATERAL EXAM: XR CHEST 2V PA LATERAL CLINICAL HISTORY: cough TECHNIQUE: 2D digital imaging was performed of the chest. Two images were obtained. PA and lateral views were obtained. COMPARISON: CR CHEST 2 VIEWS PA,LAT from 12/26/2008 FINDINGS: MEDIASTINUM: Normal. HEART: Normal. PULMONARY VASCULATURE: Normal. LUNGS: There is an infiltrate in the left lower lobe. The lungs are otherwise clear. PLEURAL SPACE: No pleural effusion or pneumothorax. BONE:Within normal limits for the patient's age. OTHER FINDINGS:Normal. IMPRESSION: Left lower lobe pneumonia. DATA REPOSITORY: RADIATION DOSE DELIVERED:
[2024-06-26 12:00] LABS: Influenza A PCR Negative (Negative); Influenza B PCR Negative (Negative); RSV PCR Negative (Negative)
[2024-06-26 12:01] LABS: Source Nasopharynx
[2024-06-26 12:03] LABS: COVID-19 PCR Positive (Negative)
[2024-06-26 12:12] VITALS: BP 147/94; PULSE 89; RESP 16; O2SAT 98
== END 2024-06-26 12:14 | disposition home or self-care (01) ==
PROVIDERS: Emergency Provider Emergency Medicine; PCP Family Medicine
DX: J40 Bronchitis, not specified as acute or chronic (principal); L73.9 Follicular disorder, unspecified; R05.1 Acute cough
CPT/HCPCS: 87637; 99283; 71046

== ENCOUNTER 2024-07-12 20:12 | Emergency (ER) | payer BC, SELFPAY ==
[2024-07-12 20:13] VITALS: BP 156/94; PULSE 99; RESP 16; TEMP 36.2; O2SAT 98
--- NOTE | 2024-07-12 20:30 | RT.EKG_ITS ---
APPROVED REPORT Exam: Resting ECG Reason for Exam: chest pain Patient Location: E HR:90 bpm ECG Measurements Heart Rate 90 AXIS OH 152 P 49 QRSd 82 QRS 10 QT 359 T 23 QTc 441 Conclusion Sinus rhythm...normal P axis, V-rate 60- 99 Probable left atrial enlargement...P >50mS, <-0.10mV V1 Sinus rhythm normal axis normal intervals no acute ischemic changes
--- NOTE | 2024-07-12 20:30 | DI.CT_ITS ---
Exam(s) CT CHEST PE CTA EXAM: CT CHEST PE CTA CLINICAL HISTORY: left chest pain rib pain, recent pneumonia. TECHNIQUE: Imaging Protocol: Axial CT angiography was performed with multi-slice acquisition and mu lti-planar and/or 3D reconstructions. CONTRAST MATERIAL: Intravenous: Omnipaque 350 contrast volume:75 mL COMPARISON: CR XR CHEST 2V PA LATERAL from 06/26/2024 FINDINGS: Tracheobronchial tree: Patent where visualized. No bronchiectasis. Pulmonary parenchyma: No consolidation or dominant measurable mass. No architectural distortion. Calc ified granuloma present. There are atelectatic changes seen in the lung bases. Pulmonary Arteries: No evidence of filling defect to suggest pulmonary emboli. Mediastinum and Casie: No dominant adenopathy or fluid collection. The esophagus is unremarkable. Visualized thyroid gland: Unremarkable. Pleura: No effusion or pneumothorax. Heart: The heart is not dilated. No coronary artery calcifications are seen. No pericardial effusion. Aorta: Thoracic aorta non-dilated. No evidence of dissection. Upper abdomen: Unremarkable. Soft tissues: Unremarkable. Bones: Within normal limits for the patient's age. IMPRESSION: No evidence of pulmonary embolism, thoracic aortic dissection or aneurysm. RADIATION DOSE DELIVERED: 97.91mGy.cm Total DLP DATA REPOSITORY: All CT scans at this facility are submitted to the National Radiology Data Registry (NRDR) Dose Index Registry (DIR) with the [employer] (ACR). RADIATION OPTIMIZATION: All CT scans at this facility use at least one of these dose optimization te chniques: automated exposure control; mA and/or kV adjustment per patient size (includes targeted exa ms where dose is matched to clinical indication); or iterative reconstruction.
[2024-07-12 21:32] LABS: Abs Immature Grans 0.06 10^3/uL (0.0-0.06); Absolute Eosinophil Count 0.29 10^3/uL (0.0-0.7); Absolute Neutrophil Count 7.62 10^3/uL (1.2-6.7); Basophils % 0.4 %; Eosinophils % 2.5 %; HCT 40.1 % (36.0-46.0); HGB 13.2 g/dL (11.2-15.7); Immature Grans % 0.5 %; Lymphocytes % 23.7 %; MCH 30.5 pg (27.0-33.0); MCHC 32.9 % (32.0-36.0); MCV 93 fL (80-95); MPV 9.5 fL (8.0-11.0); Monocytes % 6.1 %; Neutrophils % 66.8 %; Platelet Count 328 10^3/uL (130-400); RBC 4.33 10^6/uL (3.93-5.22); RDW 11.8 % (11.7-14.6); RDW-SD 40.5 fL
[2024-07-12 21:33] LABS: Absolute Basophil Count 0.05 10^3/uL (0.0-0.2)
--- NOTE | 2024-07-12 21:36 | ED.GENADUL_ITS ---
Discharge Plan Disposition Patient Disposition: Home Condition: Improving Discharge Details Clinical Impression: Chest wall pain Primary Care Provider: Viktoria Santos ED Provider: Javier Schuster Home Meds and New Rx's Prescriptions: New lidocaine [Lidoderm] 5 % adhesive patch,medicated 1 patch topical DAILY PRNQty: 15 0RF Rx Instructions: leave on most painful area for up to 12 hrs No Action multivitamin [Daily Multi-Vitamin] 1 EACH tablet 1 ea PO DAILY norgestimate-ethinyl estradiol [Sprintec (28)] 0.25-35 mg-mcg tablet See Rx Instructions .ROUTE .COMPLEX Qty: 28 0RF Dose Instruction: Take 1 tablet by mouth once daily Rx Instructions: Take 1 tablet by mouth once daily Discharge Instructions Instructions: Chest Pain, Adult ED Additional Instructions: Please follow-up with your primary care physician. Return to the emergency department for any worsening symptoms HPI General Date/Time Provider Initiated Documentation: 07/12/24 20:30 . HPI Narrative: 44-year-old female presents with left-sided rib and chest discomfort in the setting of recent pneumonia and cough, feels improved from her pneumonia symptoms however some persistent mild cough, feels shortness of breath with exertion. Does take exogenous estrogen for control, no leg swelling or pain no recent immobilization trauma or history of thromboembolic disease Related Data Home Medications ?Medication ?Instructions ?Recorded ?Confirmed multivitamin (Daily Multi-Vitamin 1 ea PO DAILY 11/04/13 07/12/24 tablet) norgestimate 0.25 mg-ethinyl See Rx Instructions .Route 05/31/24 07/12/24 estradiol 35 mcg tablet (Sprintec .COMPLEX #28 tabs (28)) lidocaine 5 % topical patch 1 patch topical DAILY PRN #15 ea 07/12/24 (Lidoderm) Previous Rx's ?Medication ?Instructions ?Recorded norgestimate 0.25 mg-ethinyl See Rx Instructions .Route 05/31/24 estradiol 35 mcg tablet (Sprintec .COMPLEX #28 tabs (28)) lidocaine 5 % topical patch 1 patch topical DAILY PRN #15 ea 07/12/24 (Lidoderm) Allergies Allergy/AdvReac Type Severity Reaction Status Date / Time No Known Drug Allergies Allergy Other (See Verified 07/12/24 20:20 Comment) General Stated Complaint: Chest/Rib PRABHA: 4 Exam Narrative Exam Narrative: Alert oriented interactive Resting comfortably no acute distress speaking full sentences Lungs clear bilaterally no wheeze rales or rhonchi Normal heart sounds no murmurs rubs or gallop No peripheral edema moving all extremities Ambulatory without assistance No evidence of rash Neurologically intact moving all extremities without deficit Normal mood/ Course Vital Signs Vital signs: Vital Signs Temperature 36.2 C L 07/12/24 20:13 Pulse 99 H 07/12/24 20:13 Respiratory Rate 16 07/12/24 20:13 Blood Pressure 156/94 H 07/12/24 20:13 Pulse Oximetry 98 07/12/24 20:13 Temperature 36.2 C L 07/12/24 20:13 Temperature Source Temporal Artery Scan 07/12/24 20:13 Pulse 99 H 07/12/24 20:13 Respiratory Rate 16 07/12/24 20:13 Respiratory Effort Normal 07/12/24 20:21 Respiratory Depth Normal 07/12/24 20:21 Respiratory Pattern Normal 07/12/24 20:21 Blood Pressure 156/94 H 07/12/24 20:13 Blood Pressure Position Sitting 07/12/24 20:13 Pulse Oximetry 98 07/12/24 20:13 Oxygen Delivery Method Room Air 07/12/24 20:13 Oxygen Flow Rate 0 07/12/24 20:13 Pain Level 8 07/12/24 20:13 Lab/Test Results Lab/Test Results: Laboratory Tests Range/Units 07/12/24 21:15 WBC (4.4-10.8) 10^3/uL 11.40 H RBC (3.93-5.22) 10^6/uL 4.33 Hgb (11.2-15.7) g/dL 13.2 Hct (36.0-46.0) % 40.1 MCV (80-95) fL 93 MCH (27.0-33.0) pg 30.5 MCHC (32.0-36.0) % 32.9 RDW (11.7-14.6) % 11.8 Plt Count (130-400) 10^3/uL 328 MPV (8.0-11.0) fL 9.5 Immature Gran % % 0.5 Neutrophils % % 66.8 Lymphocytes % % 23.7 Monocytes % % 6.1 Eosinophils % % 2.5 Basophils % % 0.4 Nucleated RBC % (0.0-0.3) % 0.0 Absolute Neutrophils (1.2-6.7) 10^3/uL 7.62 H Absolute Lymphocytes (1.2-3.4) 10^3/uL 2.70 Absolute Monocytes (0.1-0.8) 10^3/uL 0.70 Absolute Eosinophils (0.0-0.7) 10^3/uL 0.29 Absolute Basophils (0.0-0.2) 10^3/uL 0.05 POC- Test(urine) Negative Medical Decision Making 44-year-old female presents with left-sided rib discomfort in the setting of recent pneumonia and cough, shortness of breath with exertion, EKG nonischemic, borderline tachycardic arrival normotensive nontachypneic not hypoxic. Atraumatic. Afebrile. Speaking full sentences lungs clear bilaterally. Consider chest wall strain versus costochondritis versus pleurisy versus residual pneumonia versus pleural effusion versus PE versus less likely ACS. Screening labs imaging close reassessment 23: 05 resting comfortably no acute distress. No evidence of PE or ACS. Likely costochondritis versus pleurisy versus chest wall strain from coughing. Quality:SDOH Health Related Social Needs: No Data to Display PFSH All Active Problems (Updated 07/12/24 @ 23:07 by Javier Schuster MD) Chest wall pain (Acute) Bronchitis (Acute) Folliculitis (Acute) Amenorrhea (Acute) Contraception (Acute) Medical History No significant past medical history Surgical History section X 2 Tonsillectomy and adenoidectomy as a child Family History Father Well adult Mother Well adult Social History Smoking/Tobacco Use Status: Never Second Hand Exposure: No Smoking risk assessment performed?: Yes Alcohol Intake: former Drug use: Never Substance use type: does not use Housing: house current occupation: Teacher in [place] Sexually active: Yes Do you think of yourself as: straight/heterosexual Current gender identity: female What type of physical activity do you participate in: none Seatbelt use: always Helmet use: Yes Drive intox or ride w/intox driver license examiner: No Do you feel safe at home: Yes Do you feel safe in your relationship?: Yes Female Reproductive History Menstrual control method: pills History History 2 Para Hx # Term Pregnancies 2 Multiple births Hx # Pregnancies Ectopic pregnancies AB induced Hx Number of Living Children AB spontaneous
[2024-07-12] MEDS: Normal Saline - Diluent 50 ML VIAL IJ (21:43)
[2024-07-12] MEDS: Omnipaque 350 MG/ML 100 ML BTL IJ (21:43)
[2024-07-12 21:51] LABS: PTT Activated 33.4 sec (23.6-32.8); Prothrombin Time 9.8 sec (9.1-11.1)
[2024-07-12 21:54] LABS: ALT 19 U/L (14-59); AST 15 U/L (15-37); Albumin 3.6 g/dL (3.4-5.0); Alkaline Phosphatase 78 U/L (46-116); Anion Gap 9.6 mmol/L (3-11); BUN 14 mg/dL (7-18); CO2 29.4 mmol/L (21.0-32.0); CREATININE 0.8 mg/dL (0.55-1.02); Calcium 9.3 mg/dL (8.5-10.1); Chloride 105 mmol/L (98-107); Estimated GFR 93.12 (mL/min/1.73m2); Glucose 142 mg/dL (74-106); NT-proBNP 46 pg/mL (<300); Potassium 3.8 mmol/L (3.5-5.1); Sodium 144 mmol/L (136-145); Total Protein 7.9 g/dL (6.4-8.2); Troponin I < 4 ng/L (<or=51)
--- NOTE | 2024-07-12 22:58 | DI.VRAD_ITS ---
PROCEDURE INFORMATION: Exam: CTA Chest With Contrast Exam date and time: 07/12/2024 9:44 PM Age: 44 years old Clinical indication: Cough; Left-sided; Patient HX: Left chest pain rib pain, recent pneumonia TECHNIQUE: Imaging protocol: Computed tomographic angiography of the chest with contrast. Exam focused on the arteries. 3D rendering (Not supervised by radiologist): MIP and/or 3D reconstructed images were created by the technologist. Radiation optimization: All CT scans at this facility use at least one of these dose optimization techniques: automated exposure control; mA and/or kV adjustment per patient size (includes targeted exams where dose is matched to clinical indication); or iterative reconstruction. Contrast material: OMNIPAQUE 350; Contrast volume: 75 ml; Contrast route: INTRAVENOUS (IV); COMPARISON: CR XR CHEST 2V PA LATERAL 06/26/2024 11:29 AM FINDINGS: Pulmonary arteries: Normal. No pulmonary emboli. Aorta: Unremarkable. No aortic aneurysm. No aortic dissection. Lungs: No significant consolidation. A calcified nodule noted lower lobe. Pleural spaces: No pneumothorax. No pleural effusion. Heart: No cardiomegaly. No pericardial effusion. Lymph nodes: No enlarged lymph nodes. Bones/joints: No acute fracture. Soft tissues: Unremarkable. IMPRESSION: 1. No evidence of acute pulmonary embolism. 2. No significant consolidation. Dictated and Authenticated by: Orquidea Lawson MD. Ordering:GHANSHYAM Herrera MD
[2024-07-12] MEDS: Lidocaine 5% Patch 1 PATCH TP (23:07)
[2024-07-12 23:17] VITALS: BP 152/78; PULSE 92; RESP 16; TEMP 36.9; O2SAT 97
== END 2024-07-12 23:23 | disposition home or self-care (01) ==
PROVIDERS: Emergency Provider Emergency Medicine; PCP Family Medicine
DX: R05.9 Cough, unspecified; R07.89 Other chest pain; Z87.01 Personal history of pneumonia (recurrent)
CPT/HCPCS: 36415; 71275; 80053; 81025; 93005; 99285; 83880; 84484; 85025; 85610; 85730; 93010; 99284; J3490

== ENCOUNTER 2024-10-31 00:37 | Outpatient (CLI) | payer BC, SELFPAY ==
--- NOTE | 2024-10-31 08:45 | DI.MAMMO_ITS ---
Exam(s) MAMMO SCREENING EXAM: MAMMO SCREENING CLINICAL HISTORY: screening TECHNIQUE: Mammograms were interpreted according to the usual protocol including computer analysis w [employer] CAD system, tomosynthesis and C-view imaging. COMPARISON: 2020 through 2023 FINDINGS: The breasts are composed of scattered fibroglandular densities, Breast Density category B. No suspicious masses or suspicious microcalcifications are seen. No skin thickening or abnormal axillary lymph nodes are seen. There has been no significant change from prior exams. IMPRESSION: BI-RADS Category 1, Negative mammogram Yearly screening mammography is recommended. Breast Density - Category B, scattered fibroglandular densities. A negative radiographic report should not delay biopsy if a dominant or clinically suspicious mass is present. Up to ten percent of cancers are not identified on mammography. A negative report may reinforce clinical impression. Adenosis and dense breasts may obscure an underlying neoplasm. False positive reports average 6 to 10%. Patient will receive a letter notifying them of these results.
== END 2024-10-31 00:57 ==
LOC: DI 00:37
PROVIDERS: PCP Family Medicine; Visit Provider Nurse Practitioner Women's Health
DX: Z12.31 Encounter for screening mammogram for malignant neoplasm of breast (principal); R92.323 Mammographic fibroglandular density, bilateral breasts
CPT/HCPCS: 77063; 77067